=== PATIENT | male | born 1990 | race Two or more races ===

== ENCOUNTER 2018-10-06 12:58 | Emergency (ER) | payer OTHER | END 2018-10-06 21:23 | disposition home or self-care (01) | LOC: JER 12:58 ==

== ENCOUNTER 2018-10-21 21:38 | Emergency (ER) | payer OTHER | END 2018-10-21 23:05 | disposition home or self-care (01) | LOC: JERFT 21:38 → JER 23:05 ==

== ENCOUNTER 2019-11-12 13:54 | Emergency (ER) | payer OTHER ==
[2019-11-12 14:01] VITALS: BP 132/78; PULSE 84; TEMP 98.6; BMI 23.7
[2019-11-12] MEDS ORDERED: DIPHTH,PERTUSS(ACELL),TET 0.5 ML DISP.SYRIN IM ONE ×2 (14:02→14:11)
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
[2019-11-12] MEDS ORDERED: CEPHALEXIN MONOHYDRATE 500 MG CAPSULE (UD) PO ONE (14:59)
[2019-11-12] MEDS ORDERED: IBUPROFEN 400 MG TABLET (FP) PO ONE (14:59)
[2019-11-12] MEDS ORDERED: IBUPROFEN 600 MG TABLET (FP) PO ONE (15:00)
[2019-11-12] MEDS ORDERED: CEPHALEXIN MONOHYDRATE 500 MG CAPSULE (UD) ONE (15:01)
== END 2019-11-12 15:09 | disposition home or self-care (01) ==
LOC: JERFT 13:54
PROC: 0HQKXZZ Repair Right Lower Leg Skin, External Approach (ICD-10-PCS; principal; 2019-11-12)
PROC: 3E0234Z Introduction of Serum, Toxoid and Vaccine into Muscle, Percutaneous Approach (ICD-10-PCS; 2019-11-12)
DX: S61.442A Puncture wound with foreign body of left hand, initial encounter (principal)
CPT/HCPCS: 12001-25; 73130-TC-LT-FY; 90471; 90715; 99284-25

== ENCOUNTER 2020-12-16 20:37 | Emergency (ER) | payer OTHER ==
[2020-12-16 20:46] VITALS: BP 121/79; PULSE 91; TEMP 98.4; BMI 19.9
[2020-12-16] MEDS ORDERED: IBUPROFEN 600 MG TABLET (FP) PO ONE ×2 (21:46→22:03)
== END 2020-12-16 23:00 | disposition home or self-care (01) ==
LOC: JER 20:37 → JERFT 20:37
DX: M79.672 Pain in left foot (principal)
CPT/HCPCS: 73610-TC-LT-FY; 73630-TC-LT; 99284-25

== ENCOUNTER 2021-02-07 02:02 | Emergency (ER) | payer OTHER ==
[2021-02-07 02:27] VITALS: BP 107/60; PULSE 64; TEMP 98.4; BMI 22.7
[2021-02-07] MEDS ORDERED: AMOX TR/POT CLAV 500MG/125MG TABLETS (FP) PO ONE (02:36)
[2021-02-07] MEDS ORDERED: AMOX TR/POT CLAV 875MG/125MG TABLETS (FP) PO ONE (02:39)
[2021-02-07] MEDS ORDERED: AMOX TR/POT CLAV 875MG/125MG TABLETS (FP) ONE (02:54)
== END 2021-02-07 06:18 | disposition home or self-care (01) ==
LOC: JER 02:02
DX: S62.306A Unspecified fracture of fifth metacarpal bone, right hand, initial encounter for closed fracture (principal); Y04.0XXA Assault by unarmed brawl or fight, initial encounter
CPT/HCPCS: 73130-TC-RT-FY; 99283-25

== ENCOUNTER 2021-02-20 01:17 | Emergency (ER) | payer OTHER ==
[2021-02-20] MEDS ORDERED: HALOPERIDOL LACTATE 5 MG/ML IM ONE (01:36)
[2021-02-20] MEDS ORDERED: SODIUM CHLORIDE 1,000 ML IV STA (01:36)
[2021-02-20 01:37] VITALS: PULSE 74; BMI 25.1
[2021-02-20] MEDS ORDERED: LORazepam 2 MG/ML SDV VIAL IVPUSH ONE (01:37)
[2021-02-20 02:29] LABS: EOS % 5.5 % (0-4.5); HEMATOCRIT 38.1 % (35.4-49); HEMOGLOBIN 13.2 GM/dL (11.7-16.9); LYMPH % 45.4 % (8-40); MCH 36.4 pg (25.7-33.7); MCHC 34.8 g/dl (32.0-35.9); MEAN CELL VOLUME 104.7 fl (80-96); MEAN PLT VOLUME 8.2 fl (7.5-11.1); MONO % 7.2 % (3.8-10.2); NEUT % 40.9 % (42.8-82.8); PLATELET COUNT 278 10^3/uL (134-434); RBC 3.64 M/mm3 (4.00-5.60); RDW 12.7 % (11.9-15.9); WHITE BLOOD COUNT 3.9 K/mm3 (4.0-10.0)
[2021-02-20 02:38] LABS: INR 0.98 (0.83-1.09); PROTHROMBIN TIME (PATIENT) 11.8 SEC (9.7-13.0)
[2021-02-20 02:41] LABS: ACTIVATED PTT 31.8 SECONDS (25.2-36.5)
[2021-02-20 02:45] LABS: CALCIUM 8.2 mg/dL (8.5-10.1)
[2021-02-20 02:46] LABS: ALBUMIN 3.6 g/dl (3.4-5.0); BLOOD UREA NITROGEN 8.6 mg/dL (7-18)
[2021-02-20 02:49] LABS: CREATININE 0.9 mg/dL (0.55-1.3)
[2021-02-20 02:50] LABS: BILIRUBIN,TOTAL 0.3 mg/dL (0.2-1); TOT PROT 7.6 g/dl (6.4-8.2)
[2021-02-20] MEDS ORDERED: LORazepam 2 MG/ML SDV VIAL IM ONE (03:00)
[2021-02-20 03:18] LABS: PH,URINE 7.5 (5.0-8.0); URINE APPEARANCE CLEAR; URINE BILIRUBIN NEGATIVE (NEGATIVE); URINE COLOR YELLOW; URINE GLUCOSE (UA) NEGATIVE (NEGATIVE); URINE KETONE NEGATIVE (NEGATIVE); URINE LEUK ESTERASE NEGATIVE (NEGATIVE); URINE NITRITE NEGATIVE (NEGATIVE); URINE PROTEIN NEGATIVE (NEGATIVE)
[2021-02-20 03:28] LABS: METHADONE, UR NEGATIVE (NEGATIVE); OPIATES, URI NEGATIVE (NEGATIVE); URINE AMPHETAMINES NEGATIVE (NEGATIVE); URINE BARBITURATES NEGATIVE (NEGATIVE)
[2021-02-20 03:29] LABS: PHENCYCLIDINE,URINE NEGATIVE (NEGATIVE); URINE BENZODIAZEPINES NEGATIVE (NEGATIVE)
[2021-02-20 03:48] LABS: COCAINE, UR NEGATIVE (NEGATIVE)
[2021-02-20 06:19] VITALS: BP 91/56
== END 2021-02-20 06:52 ==
LOC: JER 01:17
PROC: 3E033GC Introduction of Other Therapeutic Substance into Peripheral Vein, Percutaneous Approach (ICD-10-PCS; principal; 2021-02-20)
PROC: 3E023GC Introduction of Other Therapeutic Substance into Muscle, Percutaneous Approach (ICD-10-PCS; 2021-02-20)
PROC: 3E0234Z Introduction of Serum, Toxoid and Vaccine into Muscle, Percutaneous Approach (ICD-10-PCS; 2021-02-20)
PROC: 3E023GC Introduction of Other Therapeutic Substance into Muscle, Percutaneous Approach (ICD-10-PCS; 2021-02-20)
PROC: 3E023NZ Introduction of Analgesics, Hypnotics, Sedatives into Muscle, Percutaneous Approach (ICD-10-PCS; 2021-02-20)
PROC: 3E033NZ Introduction of Analgesics, Hypnotics, Sedatives into Peripheral Vein, Percutaneous Approach (ICD-10-PCS; 2021-02-20)
PROC: 3E033NZ Introduction of Analgesics, Hypnotics, Sedatives into Peripheral Vein, Percutaneous Approach (ICD-10-PCS; 2021-02-20)
PROC: 3E033NZ Introduction of Analgesics, Hypnotics, Sedatives into Peripheral Vein, Percutaneous Approach (ICD-10-PCS; 2021-02-20)
PROC: 3E033GC Introduction of Other Therapeutic Substance into Peripheral Vein, Percutaneous Approach (ICD-10-PCS; 2021-02-20)
PROC: 3E03329 Introduction of Other Anti-infective into Peripheral Vein, Percutaneous Approach (ICD-10-PCS; 2021-02-20)
PROC: 3E0337Z Introduction of Electrolytic and Water Balance Substance into Peripheral Vein, Percutaneous Approach (ICD-10-PCS; 2021-02-20)
DX: F19.929 Other psychoactive substance use, unspecified with intoxication, unspecified (principal); R41.82 Altered mental status, unspecified; R45.6 Violent behavior; R45.1 Restlessness and agitation
CPT/HCPCS: 36415; 80053; 80307; 81003; 85025; 85610; 85730; 93005; 93010; 99285-25

== ENCOUNTER 2021-09-14 13:43 | Emergency (ER) | payer OTHER ==
[2021-09-14 13:53] VITALS: BP 102/70; PULSE 100; TEMP 97.9; BMI 22.6
[2021-09-14] MEDS ORDERED: SODIUM CHLORIDE 1,000 ML IV STA (14:01)
[2021-09-14] MEDS ORDERED: ONDANSETRON 4 MG/2 ML VIAL IVPUSH ONE (14:17)
[2021-09-14] MEDS ORDERED: ACETAMINOPHEN 1000 MG/100 ML BAG IVPB ONE (14:17)
[2021-09-14] MEDS ORDERED: FAMOTIDINE 20 MG/50 ML IVPB 20 MG/50 ML MG IVPB ONE (14:18)
[2021-09-14] MEDS ORDERED: ACETAMINOPHEN INJECTION 100 ML IVPB ONE (14:38)
[2021-09-14] MEDS ORDERED: ONDANSETRON 4 MG/2 ML VIAL ONE (14:39)
[2021-09-14] MEDS ORDERED: FAMOTIDINE 10 MG/ML VIAL IVPB ONE (14:39)
[2021-09-14 15:09] LABS: BASO % 0.7 % (0-2.0); EOS % 0.4 % (0-4.5); HEMATOCRIT 42.3 % (35.4-49); HEMOGLOBIN 14.4 GM/dL (11.7-16.9); LYMPH % 25.5 % (8-40); MCH 34.9 pg (25.7-33.7); MCHC 34.1 g/dl (32.0-35.9); MEAN CELL VOLUME 102.2 fl (80-96); MEAN PLT VOLUME 8.9 fl (7.5-11.1); MONO % 9.4 % (3.8-10.2); PLATELET COUNT 341 10^3/uL (134-434); RBC 4.13 M/mm3 (4.00-5.60); RDW 12.2 % (11.9-15.9); WHITE BLOOD COUNT 5.3 K/mm3 (4.0-10.0)
[2021-09-14 15:23] LABS: BLOOD UREA NITROGEN 7.8 mg/dL (7-18); CALCIUM 9.9 mg/dL (8.5-10.1)
[2021-09-14 15:26] LABS: CREATININE 0.9 mg/dL (0.55-1.3)
[2021-09-14 15:28] LABS: BILIRUBIN,TOTAL 1.1 mg/dL (0.2-1); TOT PROT 8.4 g/dl (6.4-8.2)
[2021-09-14 15:32] LABS: ALBUMIN 4.2 g/dl (3.4-5.0)
== END 2021-09-14 15:50 | disposition home or self-care (01) ==
LOC: JER 13:43
PROC: 3E033GC Introduction of Other Therapeutic Substance into Peripheral Vein, Percutaneous Approach (ICD-10-PCS; principal; 2021-09-14)
DX: R11.2 Nausea with vomiting, unspecified (principal); R19.7 Diarrhea, unspecified
CPT/HCPCS: 36415; 80053; 83690; 85025; 96365; 96375; 99284-25

== ENCOUNTER 2021-12-24 09:09 | Emergency (ER) | payer OTHER ==
[2021-12-24 10:55] VITALS: BP 114/71; PULSE 87; RESP 18; TEMP 98.3; BMI 22.4
== END 2021-12-24 10:18 | disposition home or self-care (01) ==
LOC: JERFT 09:09 → JER 09:09 → JERFT 10:18
DX: S62.314A Displaced fracture of base of fourth metacarpal bone, right hand, initial encounter for closed fracture (principal); Y04.0XXA Assault by unarmed brawl or fight, initial encounter
CPT/HCPCS: 73130-TC-RT-FY; 99283-25

== ENCOUNTER 2022-03-17 10:17 | Emergency (ER) | payer OTHER ==
[2022-03-17 10:22] VITALS: BP 123/78; PULSE 83; RESP 18; TEMP 98.1; BMI 23.0
== END 2022-03-17 11:59 | disposition home or self-care (01) ==
LOC: JERFT 10:17 → JER 10:17 → JERFT 11:59
DX: L03.211 Cellulitis of face (principal)
CPT/HCPCS: 99283-25

== ENCOUNTER 2022-07-30 04:01 | Emergency (ER) | payer OTHER ==
[2022-07-30 04:05] VITALS: BMI 24.4
[2022-07-30] MEDS ORDERED: LACTATED RINGERS SOLUTION 1000 ML INFUS.BAG IV ONE (04:48)
[2022-07-30] MEDS ORDERED: ACETAMINOPHEN 1000 MG/100 ML BAG IVPB ONE (04:48)
[2022-07-30] MEDS ORDERED: ACETAMINOPHEN INJECTION 100 ML IVPB ONE (05:01)
[2022-07-30] MEDS ORDERED: morphine CARPU-JECT 4 MG/1 ML DISP.SYRIN IVPUSH ONE (06:21)
[2022-07-30] MEDS ORDERED: morphine SULFATE 4 MG/ML VIAL ONE (06:22)
[2022-07-30 06:29] LABS: VENOUS BASE EXCESS 0.3 mmol/L (-2-2); VENOUS O2 SATURATION 66.6 % (70-80); VENOUS PCO2 44.2 mmHg (38-52); VENOUS PH 7.38 (7.310-7.410)
[2022-07-30 06:33] LABS: INR 0.97 (0.83-1.09); PROTHROMBIN TIME (PATIENT) 11.3 SEC (9.7-13.0)
[2022-07-30 06:36] LABS: ACTIVATED PTT 31.6 SECONDS (25.2-36.5)
[2022-07-30 06:47] LABS: ALBUMIN 4.2 g/dl (3.4-5.0); BLOOD UREA NITROGEN 12.8 mg/dL (7-18); CALCIUM 8.7 mg/dL (8.5-10.1)
[2022-07-30 06:52] LABS: BILIRUBIN,TOTAL 0.7 mg/dL (0.2-1); TOT PROT 8.3 g/dl (6.4-8.2)
[2022-07-30] MEDS ORDERED: AMOX TR/POT CLAV 875MG/125MG TABLETS (FP) PO ONE (07:06)
[2022-07-30 07:16] LABS: BASO % 0.3 % (0-2.0); EOS % 0.1 % (0-4.5); HEMOGLOBIN 13.3 GM/dL (11.7-16.9); LYMPH % 12.8 % (8-40); MCH 35.1 pg (25.7-33.7); MCHC 34.1 g/dl (32.0-35.9); MEAN PLT VOLUME 8.5 fl (7.5-11.1); MONO % 5.9 % (3.8-10.2); NEUT % 80.9 % (42.8-82.8); PLATELET COUNT 326 10^3/uL (134-434); RBC 3.78 M/mm3 (4.00-5.60); RDW 13.2 % (11.9-15.9); WHITE BLOOD COUNT 12.7 K/mm3 (4.0-10.0)
[2022-07-30 07:19] VITALS: BP 129/89; RESP 20; TEMP 98.7
[2022-07-30] MEDS ORDERED: AMOX TR/POT CLAV 875MG/125MG TABLETS (FP) ONE (07:37)
[2022-07-30 08:16] VITALS: PULSE 85
== END 2022-07-30 08:18 | disposition home or self-care (01) ==
LOC: JER 04:01
PROC: 3E033NZ Introduction of Analgesics, Hypnotics, Sedatives into Peripheral Vein, Percutaneous Approach (ICD-10-PCS; principal; 2022-07-30)
PROC: 3E033GC Introduction of Other Therapeutic Substance into Peripheral Vein, Percutaneous Approach (ICD-10-PCS; 2022-07-30)
DX: S01.511A Laceration without foreign body of lip, initial encounter (principal); S01.01XA Laceration without foreign body of scalp, initial encounter; Y00.XXXA Assault by blunt object, initial encounter; Y04.0XXA Assault by unarmed brawl or fight, initial encounter
CPT/HCPCS: 36415; 70450-TC; 70486-TC; 71045-TC-FY; 72125-TC; 72170-TC-FY; 80053; 80307; 82803; 85025; 85610; 85730; 93005; 93010; 99285-25

== ENCOUNTER 2023-08-06 16:05 | Emergency (ER) | payer OTHER ==
[2023-08-06 16:16] VITALS: TEMP 98.9; BMI 24.4
[2023-08-06] MEDS ORDERED: ACETAMINOPHEN 325 MG TABLET (FP) ONE (19:04)
[2023-08-06] MEDS ORDERED: IBUPROFEN 400 MG TABLET (FP) PO ONE (19:04)
[2023-08-06] MEDS: ACETAMINOPHEN 325 MG TABLET (FP) PO ONE (19:06)
[2023-08-06] MEDS: IBUPROFEN 400 MG TABLET (FP) PO ONE (19:06)
[2023-08-06 19:15] VITALS: BP 125/68; PULSE 88; RESP 20
== END 2023-08-06 19:28 | disposition home or self-care (01) ==
LOC: JER 16:05
PROC: 0HQ4XZZ Repair Neck Skin, External Approach (ICD-10-PCS; principal; 2023-08-06)
DX: S11.91XA Laceration without foreign body of unspecified part of neck, initial encounter (principal); X99.8XXA Assault by other sharp object, initial encounter; Y92.009 Unspecified place in unspecified non-institutional (private) residence as the place of occurrence of the external cause
CPT/HCPCS: 99283-25